=== PATIENT | female | born 1965 | race Caucasian/White ===

== ENCOUNTER 2020-12-12 06:10 | Inpatient (IN) ==
[~2020-12-12 06:10] MED LIST: Buffered Lidocaine 1% SYRIN 1 ml INTRADERM ONE; Lactated Ringers 1000 ml BAG 1,000 ML IV SCH
[2020-12-12] MEDS ORDERED: ceFAZolin 2 GM in NS PREMIX 2 GM/100 ML BAG IVPB ONE (06:29)
[2020-12-12] MEDS ORDERED: ceFAZolin 1 GM ADVAN 1 GM ADDV.VIAL IVPB ONE (06:29)
[2020-12-12] MEDS ORDERED: fentaNYL 100 mcg/2 ml 50 MCG/ML VIAL ONE ×3 (06:52→09:59)
[2020-12-12] MEDS ORDERED: Midazolam 2 mg/2 ml VIAL 1 mg/ml 2 ml VIAL (2 mg) ONE (06:52)
[2020-12-12] MEDS ORDERED: ROPIVACAINE 5 MG/ML 30 ML BTL (0.5%) ONE (06:53)
[2020-12-12] MEDS ORDERED: Lidocaine 2% PF 5 ML VIAL ONE ×2 (06:53→07:45)
[2020-12-12] MEDS ORDERED: Dexmedetomidine 200 mcg/2 ml 2 ml VIAL (200 mcg) ONE (06:53)
[2020-12-12] MEDS ORDERED: Bupivacaine 0.25% EPI 200,000 30 ML SDV ONE (07:22)
[2020-12-12] MEDS ORDERED: Propofol 10 MG/ML 20 ML BTL ONE ×3 (07:45→10:03)
[2020-12-12] MEDS ORDERED: Phenylephrine 40 mcg/mL 10mL (400mcg) SYRINGE ONE (08:02)
[2020-12-12] MEDS ORDERED: Rocuronium 50 mg VIAL 10 mg/ml 5 ml VIAL (50 mg) ONE (08:08)
[2020-12-12] MEDS ORDERED: Ondansetron 4 mg VIAL 2 MG/ML 2 ml VIAL ONE (08:20)
[2020-12-12] MEDS ORDERED: Acetaminophen IV 1 GM/100ML 100 ML IV ONE (08:20)
[2020-12-12] MEDS ORDERED: Dexamethasone IV 4 MG/ML VIAL 1 ml VIAL ONE ×2 (08:20→11:59)
[2020-12-12] MEDS ORDERED: DiMENhydriNATE IV 50 mg/ml 1 ml VIAL IV PUSH PRN (09:26)
[2020-12-12] MEDS ORDERED: Naloxone 0.4 mg VIAL 0.4 mg/ml 1 ml VIAL IV PRN (09:26)
[2020-12-12] MEDS: fentaNYL 100 mcg/2 ml 50 MCG/ML VIAL IV PRN ×2 (10:01→10:06)
[2020-12-12] MEDS ORDERED: DiMENhydriNATE IV 50 mg/ml 1 ml VIAL ONE (10:35)
[2020-12-12] MEDS ORDERED: Metoclopramide 5 MG/ML VIAL (10 mg) IV PRN (11:33)
[2020-12-12] MEDS ORDERED: Atropine 0.1 MG/ML 10 ml SYR (1 mg) IV PUSH ONE (11:34)
[2020-12-12] MEDS ORDERED: Bupivacaine 0.5% SDV PF 30ML VIAL ONE (11:57)
[2020-12-12] MEDS ORDERED: Lidocaine 1% MPF 5 ML VIAL ONE (12:30)
[2020-12-12] MEDS ORDERED: diPHENhydraMINE 25 mg TAB PO PRN (15:14)
[2020-12-12] MEDS ORDERED: Morphine 2 MG/ML SYRINGE IV PRN (15:14)
[2020-12-12] MEDS ORDERED: Ondansetron 4 mg VIAL 2 MG/ML 2 ml VIAL IV PRN (15:14)
[2020-12-12] MEDS ORDERED: Magnesium Hydroxide LIQ 30 ML UDC PO PRN (15:14)
[2020-12-12] MEDS ORDERED: Lactulose 30 ml UDC PO PRN (15:14)
[2020-12-12] MEDS ORDERED: diPHENhydraMINE IV 50 MG/ML 1 ml VIAL (BENADRYL) IV PRN (15:14)
[2020-12-12] MEDS ORDERED: COVID-19 VACCINE, MRNA(PFIZER)/PF 30 MCG/0.3 ML IM ONE (16:51)
[2020-12-12] MEDS: ceFAZolin 1 GM ADVAN 1 GM in NS 0.9% 50 ML 50 ML IVPB SCH (17:59)
[2020-12-12] MEDS: DULoxetine DR 30 mg CAP PO SCH (22:38)
[2020-12-12] MEDS: Magnesium Hydroxide LIQ 30 ML UDC PO SCH (22:50)
[2020-12-13] MEDS: Erythromycin OPTH OINT APPLIC OINT LEFT EYE SCH ×4 (00:49→23:16)
[2020-12-13] MEDS: ceFAZolin 1 GM ADVAN 1 GM in NS 0.9% 50 ML 50 ML IVPB SCH ×2 (00:50→09:02)
[2020-12-13 06:31] LABS: Hematocrit 39 % (35-47); Hemoglobin 13.1 g/dL (12.0-16.0); Mean Platelet Volume 8.2 fL (7.4-10.4); Platelet Count 206 10^3/uL (150-450)
[2020-12-13 06:49] LABS: Calcium 8.4 mg/dL (8.6-10.3); EGFR Non-African American 91.7 (>60); Potassium 4.4 mmol/L (3.5-5.0)
[2020-12-13] MEDS: DULoxetine DR 30 mg CAP PO SCH ×2 (09:03→20:24)
[2020-12-13] MEDS: Magnesium Hydroxide LIQ 30 ML UDC PO SCH ×2 (09:03→20:24)
[2020-12-13] MEDS: Vitamin THERAPEUTIC TAB PO SCH (09:03)
[2020-12-13] MEDS: Enoxaparin 40 MG/0.4 ML SYR SUBCUT SCH (12:20)
[2020-12-13] MEDS ORDERED: COVID-19 VACCINE, MRNA(MODERNA)/PF 100 MCG/0.5 ML IM ONE (16:00)
[2020-12-14 06:12] LABS: Hematocrit 38 % (35-47); Hemoglobin 12.6 g/dL (12.0-16.0); Mean Platelet Volume 8.6 fL (7.4-10.4); Platelet Count 191 10^3/uL (150-450)
[2020-12-14] MEDS: Magnesium Hydroxide LIQ 30 ML UDC PO SCH ×2 (09:21→19:35)
[2020-12-14] MEDS: Vitamin THERAPEUTIC TAB PO SCH (09:21)
[2020-12-14] MEDS: DULoxetine DR 30 mg CAP PO SCH ×2 (09:21→19:35)
[2020-12-14] MEDS: Erythromycin OPTH OINT APPLIC OINT LEFT EYE SCH ×3 (10:39→19:35)
[2020-12-14] MEDS: Enoxaparin 40 MG/0.4 ML SYR SUBCUT SCH (12:10)
[2020-12-15 06:59] LABS: Hematocrit 36 % (35-47); Hemoglobin 12.1 g/dL (12.0-16.0); Mean Platelet Volume 8.4 fL (7.4-10.4); Platelet Count 164 10^3/uL (150-450)
[2020-12-15] MEDS: Vitamin THERAPEUTIC TAB PO SCH (10:04)
[2020-12-15] MEDS: Ondansetron ODT 4 mg TAB 4 MG TAB PO PRN (10:05)
[2020-12-15] MEDS: DULoxetine DR 30 mg CAP PO SCH ×2 (10:05→20:35)
[2020-12-15] MEDS: Enoxaparin 40 MG/0.4 ML SYR SUBCUT SCH (10:07)
[2020-12-15] MEDS: Magnesium Hydroxide LIQ 30 ML UDC PO SCH ×2 (10:07→20:35)
[2020-12-15] MEDS: Erythromycin OPTH OINT APPLIC OINT LEFT EYE SCH ×3 (10:07→20:37)
[2020-12-16 05:17] LABS: Hematocrit 37 % (35-47); Hemoglobin 12.3 g/dL (12.0-16.0); Platelet Count 176 10^3/uL (150-450)
[2020-12-16] MEDS: Magnesium Hydroxide LIQ 30 ML UDC PO SCH ×2 (09:17→21:14)
[2020-12-16] MEDS: DULoxetine DR 30 mg CAP PO SCH ×2 (09:17→21:12)
[2020-12-16] MEDS: Vitamin THERAPEUTIC TAB PO SCH (09:18)
[2020-12-16] MEDS: Erythromycin OPTH OINT APPLIC OINT LEFT EYE SCH ×3 (09:18→21:14)
[2020-12-16] MEDS: Enoxaparin 40 MG/0.4 ML SYR SUBCUT SCH (13:38)
[2020-12-17] MEDS: Ondansetron ODT 4 mg TAB 4 MG TAB PO PRN (02:39)
[2020-12-17 06:51] LABS: Hematocrit 35 % (35-47); Hemoglobin 11.7 g/dL (12.0-16.0); Mean Platelet Volume 7.8 fL (7.4-10.4); Platelet Count 171 10^3/uL (150-450)
[2020-12-17] MEDS: Magnesium Hydroxide LIQ 30 ML UDC PO SCH ×2 (08:32→23:03)
[2020-12-17] MEDS: DULoxetine DR 30 mg CAP PO SCH ×2 (08:32→23:03)
[2020-12-17] MEDS: Vitamin THERAPEUTIC TAB PO SCH (08:32)
[2020-12-17] MEDS: Erythromycin OPTH OINT APPLIC OINT LEFT EYE SCH ×3 (08:32→23:03)
[2020-12-17] MEDS: Enoxaparin 40 MG/0.4 ML SYR SUBCUT SCH (11:58)
[2020-12-18] MEDS: Erythromycin OPTH OINT APPLIC OINT LEFT EYE SCH ×3 (08:23→21:05)
[2020-12-18] MEDS: DULoxetine DR 30 mg CAP PO SCH ×2 (08:24→21:04)
[2020-12-18] MEDS: Magnesium Hydroxide LIQ 30 ML UDC PO SCH ×2 (08:24→21:05)
[2020-12-18] MEDS: Vitamin THERAPEUTIC TAB PO SCH (08:24)
[2020-12-18] MEDS: Enoxaparin 40 MG/0.4 ML SYR SUBCUT SCH (12:20)
[2020-12-18] MEDS ORDERED: Iohexol 350 (CONTRAST) 500 ML MDV IV ONE (14:36)
[2020-12-19] MEDS: DULoxetine DR 30 mg CAP PO SCH ×2 (08:38→22:30)
[2020-12-19] MEDS: Erythromycin OPTH OINT APPLIC OINT LEFT EYE SCH ×3 (08:38→22:30)
[2020-12-19] MEDS: Magnesium Hydroxide LIQ 30 ML UDC PO SCH ×2 (08:38→22:31)
[2020-12-19] MEDS: Vitamin THERAPEUTIC TAB PO SCH (08:39)
[2020-12-19] MEDS: Enoxaparin 40 MG/0.4 ML SYR SUBCUT SCH (11:31)
[2020-12-20] MEDS: Magnesium Hydroxide LIQ 30 ML UDC PO SCH (08:00)
[2020-12-20] MEDS: DULoxetine DR 30 mg CAP PO SCH (08:00)
[2020-12-20] MEDS: Vitamin THERAPEUTIC TAB PO SCH (08:00)
[2020-12-20] MEDS: Erythromycin OPTH OINT APPLIC OINT LEFT EYE SCH (08:01)
[2020-12-20 11:54] VITALS: BP 104/60
[2020-12-20] MEDS: Enoxaparin 40 MG/0.4 ML SYR SUBCUT SCH (12:30)
== END 2020-12-20 13:45 | DRG 314 ==
LOC: OR 06:10 → SSU 06:10
PROVIDERS: ADMIT Orthopaedic Surgery; ATTEND Orthopaedic Surgery